=== PATIENT | male | born 1985 | race Caucasian/White ===

== ENCOUNTER 2017-03-26 16:39 | Emergency (ER) | payer OTHER ==
[~2017-03-26] VITALS: Ht 172.7 cm; Wt 92.0 kg
[2017-03-26 16:45] VITALS: BP 128/74; PULSE 95; RESP 16; TEMP 98.5; O2SAT 98
[2017-03-26] MEDS ORDERED: CYCL10TA PO (17:24)
[2017-03-26] MEDS ORDERED: NABU1TAB37 PO (17:24)
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
== END 2017-03-26 18:15 | disposition home or self-care (01) ==
LOC: PHEFT 16:39
DX: S60.222A Contusion of left hand, initial encounter (principal); S80.02XA Contusion of left knee, initial encounter; S43.102A Unspecified dislocation of left acromioclavicular joint, initial encounter; V89.2XXA Person injured in unspecified motor-vehicle accident, traffic, initial encounter; Z72.0 Tobacco use
CPT/HCPCS: 73030; 73130; 73564; 99284